=== PATIENT | male | born 1935 | race African-American/Black ===

== ENCOUNTER 2023-07-17 00:33 | Emergency (ER) | payer OTHER, MEDICARE ==
[~2023-07-17] VITALS: Ht 177.8 cm; Wt 75.2 kg
[2023-07-17] MEDS ORDERED: SODIUM CHLORIDE 0.9% 100 ML ONE (00:50)
[2023-07-17] MEDS ORDERED: IOHEXOL 350 MG/ML 100 ML VIAL ONE (00:50)
[2023-07-17 01:19] VITALS: TEMP 98
[2023-07-17 01:49] LABS: WHITE BLOOD COUNT (AUTO) 5.4 K/uL (4.5-11.0)
[2023-07-17 01:50] LABS: BASOPHILS % (AUTO) 0.6 % (0.0-2.0); EOSINOPHILS % (AUTO) 1.2 % (1.0-6.0); HEMATOCRIT 33.6 % (41-53); HEMOGLOBIN 11.1 g/dL (13.5-17.5); LYMPHOCYTES # (AUTO) 0.5 K/uL (1.0-4.8); LYMPHOCYTES % (AUTO) 9.1 % (22.0-44.0); MEAN CORPUSCULAR HEMOGLOBIN 28.6 pg (26.0-34.0); MEAN CORPUSCULAR HGB CONC 32.9 G/dL (31.0-37.0); MEAN CORPUSCULAR VOLUME 87 fL (80-100); MONOCYTES # (AUTO) 0.4 K/uL (0.1-1.0); NEUTROPHILS # (AUTO) 4.4 K/uL (1.8-7.7); NEUTROPHILS % (AUTO) 82.1 % (40.0-70.0); PLATELET COUNT (AUTO) 177 K/uL (150-450); RED BLOOD CELL COUNT(AUTO) 3.86 MIL/uL (4.50-5.90); RED CELL DISTRIBUTION WIDTH 14.5 % (11.5-14.5)
[2023-07-17 01:52] LABS: BILIRUBIN,TOTAL 0.4 mg/dL (0.1-1.0); CALCIUM, TOTAL 8.1 mg/dL (8.8-10.5); CREATININE 1.47 mg/dL (0.60-1.30); POTASSIUM 4.1 mmol/L (3.5-5.1)
[2023-07-17 01:53] LABS: ALBUMIN 1.9 g/dL (3.4-5.0); TOTAL PROTEIN, SERUM 5.5 g/dL (6.4-8.2); TROPONIN I-HIGH SENSITIVITY 17 ng/L (<76)
[2023-07-17 01:54] LABS: INR 1.1 (0.9-1.1); PROTHROMBIN TIME 11.2 SEC (9.4-11.6)
[2023-07-17 02:30] VITALS: O2SAT 94
[2023-07-17] MEDS: ASPIRIN 81 MG CHEWABLE TABLET PO ONE (03:51)
[2023-07-17 03:57] VITALS: BP 127/81; PULSE 76; RESP 17
== END 2023-07-17 04:45 | disposition short-term general hospital (02) ==
LOC: EMS 00:35
DX: R41.82 Altered mental status, unspecified (principal); I48.91 Unspecified atrial fibrillation; I65.23 Occlusion and stenosis of bilateral carotid arteries; F17.210 Nicotine dependence, cigarettes, uncomplicated; Z86.73 Personal history of transient ischemic attack (TIA), and cerebral infarction without residual deficits
CPT/HCPCS: 99291; 70496; 71045; 80053; 84484; 85025; 85610; 85730; 86850; 86900; 86901; 36415; 70498; 82948; 93005; 70450; Q9967; J7050